=== PATIENT | female | born 1990 | race Caucasian/White ===

== ENCOUNTER 2016-09-26 13:17 | Emergency (ER) | payer SELFPAY ==
[~2016-09-26] VITALS: Ht 172.7 cm; Wt 90.5 kg
[~2016-09-26 13:17] MED LIST: IBUP-232 PO; MEDR10 PO
[2016-09-26 13:18] VITALS: BP 134/74; PULSE 80; RESP 24; TEMP 98.6; O2SAT 100
--- NOTE | 2016-09-26 14:00 | PD ---
HPI Chief Complaint: Oral / Dental Pain or Problem Time Seen by Provider: 14:00 Travel History International Travel<30 days: No Contact w/Intl Traveler<30days: No Traveled to known affect area: No History of Present Illness HPI 26-year-old female presents the emergency department with worsening left lower third molar pain and swelling of the gingiva over the past 3 days. Patient states pain is 8/10. She has been using [id number] medications without improvement. Patient denies difficulty swallowing or sore throat. Pain is localized to the left lower jaw. Pain is not worsened by hot or cold at this time. Patient is allergic to penicillin and amoxicillin. She has no local dentist. PFSH Past Medical History ?: Not LMP: 1 mth : 0 Social History Alcohol Use: No Tobacco Use: No Allergies-Medications (Allergen,Severity, Reaction): Coded Allergies: Amoxil (Unverified Allergy, Unknown, 09/26/16) Penicillin (Unverified Allergy, Unknown, 09/26/16) Reported Meds & Prescriptions Reported Meds & Active Scripts Active Provera 10 Mg Tab (Medroxyprogesterone Acetate) 10 Mg Tab 10 Mg PO DAILY Motrin (Ibuprofen) 600 Mg Tab 1 Tab PO TID NEEDED FOR PAIN Review of Systems Except as stated in HPI: all other systems reviewed are Neg General / Constitutional: No: Fever Eyes: No: Visual changes HENT: Positive: Dental Difficulties, No: Headaches, Sore Throat, Rhinitis, Rhinorrhea, Congestion, Nosebleed, Neck Stiffness, Neck Pain, Ear Discharge, Earache Cardiovascular: No: Chest Pain or Discomfort Respiratory: No: Shortness of Breath Gastrointestinal: No: Abdominal Pain Genitourinary: No: Dysuria Musculoskeletal: No: Pain Skin: No Rash Neurologic: No: Weakness Psychiatric: No: Depression Endocrine: No: Polydipsia Hematologic/Lymphatic: No: Easy Bruising Physical Exam Narrative GENERAL: Patient is in mild to moderate distress. SKIN: Warm and dry. HEAD: Atraumatic. Normocephalic. EYES: Pupils equal and round. No scleral icterus. No injection or drainage. ENT: No nasal bleeding or discharge. Mucous membranes pink and moist. Patient has emerging left lower wisdom tooth with localized gingival swelling, erythema , but no obvious abscess. Area is tender with palpation. Uvula is midline. Airway is patent. No significant lymphadenopathy is noted. No Cosmo's angina is noted. NECK: Trachea midline. Supple nontender without significant lymphadenopathy. CARDIOVASCULAR: Regular rate and rhythm. RESPIRATORY: No accessory muscle use. Clear to auscultation. Breath sounds equal bilaterally. MUSCULOSKELETAL: Extremities without clubbing, cyanosis, or edema. No obvious deformities. NEUROLOGICAL: Awake and alert. No obvious cranial nerve deficits. Motor grossly within normal limits. Five out of 5 muscle strength in the arms and legs. Normal speech. PSYCHIATRIC: Appropriate mood and affect; insight and judgment normal. Data Data Last Documented VS Vital Signs Date Time Temp Pulse Resp B/P Pulse Ox O2 Delivery O2 Flow Rate FiO2 09/26/16 13:18 98.6 80 24 134/74 100 Room Air MDM Medical Decision Making Medical Screen Exam Complete: Yes Emergency Medical Condition: Yes Differential Diagnosis Dental pain. Dental caries. Dental abscess. Narrative Course Patient is medically stable at time of exam. Patient is given Toradol 60 mg IM as well as 450 mg clindamycin by mouth Patient is continued on clindamycin 300 mg 4 times a day 7 days. Patient given ibuprofen 800 mg 3 times daily with food. #30. Patient is given acetaminophen 500 mg 2 tabs every 6 hours when necessary pain. #60 Dental information is given patient for follow-up. Patient can return to emergency department if worsening symptoms develop. Diagnosis Primary Impression: Pain due to dental caries Referrals: Dentist call for appointment Patient Instructions: Dental Abscess (ED), Dental Caries (ED), General Instructions Additional Instructions: Patient is given Toradol 60 mg IM as well as 450 mg clindamycin by mouth Patient is continued on clindamycin 300 mg 4 times a day 7 days. Patient given ibuprofen 800 mg 3 times daily with food. #30. Patient is given acetaminophen 500 mg 2 tabs every 6 hours when necessary pain. #60 Dental information is given patient for follow-up. Patient can return to emergency department if worsening symptoms develop. Med/Other Pt SpecificInfo: Prescription(s) given Disposition: 01 DISCHARGE HOME Condition: Stable Brendan Benitez Sep 26, 2016 14:00
[2016-09-26] MEDS ORDERED: IBUP800T23 PO ×2 (14:10→14:18)
[2016-09-26] MEDS ORDERED: NON-500T13 PO ×2 (14:10→14:17)
[2016-09-26] MEDS ORDERED: CLIN1CAP5 PO ×2 (14:10→14:18)
[2016-09-26] MEDS ORDERED: KETOROLAC TROMETHAMINE 60 MG/2 ML (IM) VIAL IM ONE (14:15)
[2016-09-26] MEDS ORDERED: CLINDAMYCIN 150 MG CAP PO ONE (14:15)
== END 2016-09-26 14:29 | disposition home or self-care (01) ==
LOC: NEPA 13:17
DX: K02.9 Dental caries, unspecified (principal)
CPT/HCPCS: 96372; 99284; J1885

== ENCOUNTER 2016-11-20 16:10 | Emergency (ER) | payer SELFPAY ==
[~2016-11-20] VITALS: Ht 172.7 cm; Wt 91.0 kg
[~2016-11-20 16:10] MED LIST changes: +CLIN1CAP5 PO; +IBUP800T23 PO; +NON-500T13 PO
[2016-11-20 16:12] VITALS: BP 133/76; PULSE 86; RESP 20; TEMP 98.6; O2SAT 100
[2016-11-20] MEDS ORDERED: IBUP800T23 PO (17:42)
[2016-11-20] MEDS ORDERED: CLIN1CAP5 PO (17:42)
--- NOTE | 2016-11-20 17:43 | PD ---
HPI Chief Complaint: Oral / Dental Pain or Problem Time Seen by Provider: 17:41 Travel History International Travel<30 days: No Contact w/Intl Traveler<30days: No Traveled to known affect area: No History of Present Illness HPI 26-year-old female presents to emergency Department with complaint of left lower pain of the gingiva to an area where a tooth was extracted years ago; pain started a week ago. She says the area easily bleeds also. Denies fever, vomiting. Denies throat pain or difficulty swallowing. Has not taken any medications or drainage was to alleviate her symptoms. Is requesting antibiotics. Allergies to cillins. Symptoms are mild in severity. No other medical complaints. No other modifying factors or associated signs and symptoms. PFSH Past Medical History Medical History: Denies Significant Hx Diminished Hearing: No ?: Not LMP: 11/08/16 : 0 Past Surgical History Oral Surgery: Yes Social History Alcohol Use: No Tobacco Use: No Substance Use: No Allergies-Medications (Allergen,Severity, Reaction): Coded Allergies: amoxicillin (Unverified Allergy, Unknown, 11/09/16) penicillin G (Unverified Allergy, Unknown, 11/09/16) Reported Meds & Prescriptions Reported Meds & Active Scripts Active Peridex Liq (Chlorhexidine Gluconate (Mouth) Liq) 0.12% Soln 15 Ml SWISH-SPIT BID 10 Days Ibuprofen 800 Mg Tab 800 Mg PO Q6HR PRN Clindamycin (Clindamycin HCl) 150 Mg Cap 300 Mg PO Q6H 10 Days Ibuprofen 800 Mg Tab 800 Mg PO Q8H PRN Clindamycin (Clindamycin HCl) 150 Mg Cap 300 Mg PO Q6H 7 Days Non-Aspirin Pain Relief ES (Acetaminophen) 500 Mg Tab 500 Mg PO Q6HR PRN Provera 10 Mg Tab (Medroxyprogesterone Acetate) 10 Mg Tab 10 Mg PO DAILY Motrin (Ibuprofen) 600 Mg Tab 1 Tab PO TID NEEDED FOR PAIN Review of Systems Except as stated in HPI: all other systems reviewed are Neg Physical Exam Narrative GENERAL: Well-nourished, well-developed female patient, in no acute distress; afebrile, nontoxic-appearing SKIN: Warm and dry. HEAD: Atraumatic. Normocephalic. No facial edema, erythema, tenderness on palpation. No lymphadenopathy. EYES: Pupils equal and round. No scleral icterus. No injection or drainage. ENT: Mucosa pink and moist. Airway patent. MOUTH: Mucous membranes moist, no lesions, tongue and gums appear normal. Gingiva area of tooth #19 is edematous and minimal bleeding noted; patient denies pain to tooth #18 or 20. No obvious abscess noted. NECK: Trachea midline. No lymphadenopathy. CARDIOVASCULAR: Regular rate. RESPIRATORY: No accessory muscle use. GASTROINTESTINAL: Rounded. MUSCULOSKELETAL: No obvious deformities. No clubbing. No cyanosis. No edema. NEUROLOGICAL: Awake and alert. Oriented 3. No obvious cranial nerve deficits. Motor grossly within normal limits. Normal speech. PSYCHIATRIC: Appropriate mood and affect; insight and judgment normal. Data Data Last Documented VS Vital Signs Date Time Temp Pulse Resp B/P (MAP) Pulse Ox O2 Delivery O2 Flow Rate FiO2 11/20/16 16:12 98.6 86 20 133/76 (95) 100 Room Air MDM Medical Decision Making Medical Screen Exam Complete: Yes Emergency Medical Condition: Yes Medical Record Reviewed: Yes Differential Diagnosis Dentalgia, gingivitis, dental abscess, infected dental caries Narrative Course 26-year-old female with dentalgia/gingivitis. No facial edema or erythema. Patient is afebrile and nontoxic-appearing. Denies fever, vomiting. Allergies to cillins. Clindamycin, Peridex mouth rinse, ibuprofen prescribed for home. Patient given emergency dental information sheet for follow-up. Instructed patient to follow up with dentist. Instructed patient to follow up with primary care provider. Patient verbalizes understanding and agreement with treatment plan. Patient is medically cleared and stable for discharge. Discussed reasons to return to the emergency department. Patient agrees with treatment plan. The patients vital signs are stable and the patient is stable for outpatient follow-up and treatment. Patient discharged home, stable and in no acute distress. Diagnosis Primary Impression: Dentalgia Referrals: [facility] Dentist Primary Care Physician Patient Instructions: Dental Abscess (ED), Dental Caries (ED), General Instructions, Toothache (ED) Additional Instructions: Complete full course of antibiotics Ibuprofen or Tylenol as directed and as needed to reduce pain and inflammation Warm or cool compresses to the affected area Follow-up with dentist Follow-up with primary care provider Return to emergency department immediately with worsening of symptoms Med/Other Pt SpecificInfo: Prescription(s) given Scripts Chlorhexidine Gluconate (Mouth) Liq (Peridex Liq) 0.12% Soln 15 ML SWISH-SPIT BID for 10 Days, #473 ML 0 Refills Prov: Ct Boggs 11/20/16 Ibuprofen (Ibuprofen) 800 Mg Tab 800 MG PO Q6HR Y for PAIN, #40 TAB 0 Refills Prov: Ct Boggs 11/20/16 Clindamycin (Clindamycin) 150 Mg Cap 300 MG PO Q6H for Infection for 10 Days, CAP 0 Refills Prov: Ct Boggs 11/20/16 Disposition: 01 DISCHARGE HOME Condition: Stable Ct Boggs Nov 20, 2016 17:43
[2016-11-20] MEDS ORDERED: PERI0.126 SWISH-SPIT (17:46)
== END 2016-11-20 18:07 | disposition home or self-care (01) ==
LOC: NEPK 16:10
DX: K08.89 Other specified disorders of teeth and supporting structures (principal)
CPT/HCPCS: 99284